=== PATIENT | female | born 1965 | race Caucasian/White ===

== ENCOUNTER 2018-05-07 15:48 | Emergency (ER) | payer BC ==
[2018-05-07] MEDS ORDERED: DEXAMETHASONE SOD PHOS INJ 10 MG/1 ML VIAL IM ONE (16:12)
[2018-05-07] MEDS ORDERED: FAMOTIDINE 20 MG TABLET PO ONE (16:13)
[2018-05-07] MEDS ORDERED: DIPHENHYDRAMINE HCL 50 MG/ML VIAL IM ONE (16:13)
--- NOTE | 2018-05-07 16:42 | ER Document Report ---
ED Skin Rash/Insect Bite/Abscs - General Chief Complaint: Bee Sting Stated Complaint: STUNG BY WASP/RIGHT LEG PAIN, SWELLING Time Seen by Provider: 05/07/18 16:04 Mode of Arrival: Medic Information source: Patient Notes: Patient is a 52-year-old female brought him to the room 34 by EMS with a complaint of a wasp sting to the right lower extremity. 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 Patient states that when she gets swelling by this while she freaked and felt like she was going to have that repeated anaphylactic shock is why they called EMS. EMS arrived and attempted an IV site x1 without success and brought patient into the emergency room without any medications on board for an allergic reaction. Given the patient stated she had anaphylactic shock to the last one half stating patient wanted to be sure that she was covered in case she were to have a reaction. Her EpiPen had . She got slightly short of breath and felt like her lips are slightly numb and is her end of her tongue is also slightly numb. Patient also states that she is itching all over currently. TRAVEL OUTSIDE OF THE [place] IN LAST 30 DAYS: No - HPI Patient complains to provider of: Skin rash/lesion, Insect sting Onset: Just prior to arrival Onset/Duration: Sudden Quality of pain: Achy, Throbbing Severity: Moderate Pain Level: 3 Skin Character: Rash, Urticarial Skin Temperature: Warm Quality of rash: Painful Identify cause: Yes - Wasp Relieved by: Denies Similar symptoms previously: Yes Recently seen / treated by doctor: No - Related Data Allergies/Adverse Reactions: erythromycin base Allergy (Verified 05/07/18 15:50) Penicillins Allergy (Verified 05/07/18 15:50) Sulfa (Sulfonamide Antibiotics) Allergy (Verified 05/07/18 15:50) stinging insects Allergy (Uncoded 05/07/18 15:50) Past Medical History - General Information source: Patient - To go home early today - Social History Smoking Status: Never Smoker Cigarette use (# per day): No Chew tobacco use (# tins/day): No Smoking Education Provided: No Frequency of alcohol use: None Drug Abuse: None Family History: Reviewed & Not Pertinent Patient has suicidal ideation: No Patient has homicidal ideation: No Renal/ Medical History: Denies: Hx Peritoneal Dialysis Review of Systems - Review of Systems Constitutional: No symptoms reported EENT: No symptoms reported, Nose congestion Cardiovascular: No symptoms reported Respiratory: See HPI, Cough, Short of breath Gastrointestinal: No symptoms reported Genitourinary: No symptoms reported Female Genitourinary: No symptoms reported Musculoskeletal: No symptoms reported Skin: See HPI, Rash Hematologic/Lymphatic: No symptoms reported Neurological/Psychological: No symptoms reported -: Yes All other systems reviewed and negative Physical Exam - Vital signs Vitals: Temp Pulse Resp BP Pulse Ox 98 F 69 18 135/88 H 97 05/07/18 15:52 05/07/18 15:52 05/07/18 15:52 05/07/18 15:52 05/07/18 15:52 Interpretation: Hypertensive - Notes Notes: PHYSICAL EXAMINATION: GENERAL: Patient is a well-nourished well-developed 52-year-old female who is in no apparent distress on physical exam today although she does appear uncomfortable. HEAD: Atraumatic, normocephalic. EYES: Pupils equal round and reactive to light, extraocular movements intact, conjunctiva are normal. ENT: Examination of patient's oral cavity shows her tongue appears normal no swelling or angioedema noted. Lips also have no sign of angioedema. Patient's airway is patent. No swelling of the eyes. NECK: Normal range of motion, supple without lymphadenopathy LUNGS: Breath sounds clear to auscultation bilaterally and equal. No wheezes rales or rhonchi. HEART: Regular rate and rhythm without murmurs Female : deferred Musculoskeletal: Normal range of motion, no pitting or edema. No cyanosis. NEUROLOGICAL: Normal speech, normal gait. Normal sensory, motor exams PSYCH: Normal mood, normal affect. SKIN: Examination of patient's back and anterior chest show that she has urticaria type of presentation that is very faint. This also extends into the upper and lower extremities. Her facial features are spared at this time. Patient is also displays areas of excoriation on her lower extremity where she was stung. No sign of infection at this time. Course - Re-evaluation Re-evalutation: 05/07/18 16:59 First it was a little strange patient came in by EMS with a wasp sting to lower extremity after talking to her I can understand her point of view that if you have an anaphylactic shock to staying and you can brief that is the first thing arrange crossed her mind. Often the allergic reactions are related to what species of wasp may have stung you and not knowing which one causes her to have anaphylactic shock in a wasp is a potential danger to her. She does have mild signs and symptoms of allergic reaction with the urticaria on the trunk upper and lower extremities. There is no angioedema as stated earlier in the physical exam. And patient is starting to relax slightly. I have discussed with her the need to make sure she keeps an updated EpiPen and though she sees how important it is. 05/07/18 17:12 Approximately 15 minutes after patient received her shot she was ready to go she wanted to get out of the emergency room. She responded well to the shots and I will put her up for discharge take home with her a steroid taper Benadryl and ranitidine. I will also write her for a EpiPen. - Vital Signs Vital signs: Temp Pulse Resp BP Pulse Ox 98 F 69 18 135/88 H 97 05/07/18 15:52 05/07/18 15:52 05/07/18 15:52 05/07/18 15:52 05/07/18 15:52 Discharge - Discharge Clinical Impression: Allergic reaction Qualifiers: Encounter type: initial encounter Qualified Code(s): T78.40XA - Allergy, unspecified, initial encounter Condition: Stable Disposition: HOME, SELF-CARE Instructions: Acute Allergic Reaction ([facility]) Additional Instructions: Is highly important that you take the steroids and Zantac until finished. He do not want a relapse in the reaction to come back. I have written you for another EpiPen please keep it with you. As you can noticed the reaction is probably based on the species of wasp that stung you. Since most of look like it is hard to have her get a good idea which one got you in which one caused her anaphylactic reaction. So also your stone indoors. This means really not safe anywhere you go so you need to carry that EpiPen with you at all times. Should you have any concerns or problems return to ER for recheck. Prescriptions: Epinephrine 0.3 mg IJ ONCE PRN #1 auto.injct PRN Reason: Prednisone 10 mg PO ASDIR 6 Days #1 tab.ds.pk Ranitidine HCl 150 mg PO BID #30 tablet Forms: Return to Work Referrals: [facility] [NO LOCAL MD] - Follow up as needed
[2018-05-07 17:20] VITALS: BP 137/90
== END 2018-05-07 17:20 | disposition home or self-care (01) ==
LOC: ER 15:48
DX: T63.461A Toxic effect of venom of wasps, accidental (unintentional), initial encounter (principal); L50.9 Urticaria, unspecified; R20.0 Anesthesia of skin; R06.02 Shortness of breath; Y92.512 Supermarket, store or market as the place of occurrence of the external cause; R05 Cough; Z87.892 Personal history of anaphylaxis; Z88.1 Allergy status to other antibiotic agents; Z88.2 Allergy status to sulfonamides; Z88.0 Allergy status to penicillin
CPT/HCPCS: 99283; 96372; J1200; J1100